=== PATIENT | female | born 1970 | race Caucasian/White ===

== ENCOUNTER 2018-05-22 15:00 | Outpatient (RCR) ==
--- NOTE | 2018-05-13 09:33 | RS.OPPTEV2 ---
Date of Note: 05/12/18 Visit #: 1 Number of visits approved by Insurance: n/a Date of Evaluation: 05/12/18 Payer Source: Insurance Surgery Performed?: No Treatment Diagnosis: strain of sternocleidomastoid muscle History of Condition/Mechanism of Injury:: pt reports she has been having difficulty swallowing for a few months and a couple of months ago she noticed her R neck was "swollen". Prior Level of Function.....Patient was independent with: ADL's, Self Care, Work /Vocation, Ambulation/Mobility, Community Integration/Access Functional Limitations: Sleep, Reaching, Pushing, Pulling, Lifting Current Subjective/complaints:: pt reports she has had to stop eating meat due to difficulty swallowing. States she got a CT scan which showed nodules on thyroid but not mass in neck. States ENT MD was not concerned about her thyroid. pt voices concerns due to continued difficulty swallowing and continued swelling noted in neck. 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 Pain Assessment - Pain Description Pain Location: R side of neck Pain Description: Tightness, Aching Current Pain Intensity: 5 Worst Pain Intensity: 5 Functional Outcome Measure Neck Disability Index: 10 - G Codes & Severity Modifier G Codes & Modifier: n/a Source of G Code score: n/a Observation - Observation Posture: Forward Head, Rounded Shoulders, Increased Thoracic Kyphosis, Decreased Cervical Lordosis Handedness: Right Gait - Gait Pattern General Gait Pattern Observation: No Deviations/Normal General Range of Motion: BUE WFL's. BLE WFL's Muscle Strength: BUE 5/5. BLE 5/5 - ROM Cervical Spine Range of Motion Limitations: Soft Tissue Tightness, Muscle Weakness Comments: Cervical ROM WFL's with pain with flex, side bending L and R. - Strength Cervical Extension: 4- Good- Cervical Flexion: 3 Fair Cervical Lateral Flexion: 3+ Fair+ Cervical Rotation: 4- Good- - Special Tests Foraminal Distraction: increased pain with distraction Foraminal Compression: Positive Right Palpation Palpation Findings: Tenderness, Trigger Point, Muscle Guarding Comments:: pt with tenderness, muscle guarding in R sternocleidomastoid and upper trap Sensation - Sensation Right Upper Extremity: Intact/Normal Left Upper Extremity: Intact/Normal Right Lower Extremity: Intact/Normal Left Lower Extremity: Intact/Normal Balance - Sitting Balance Static Sitting Balance: Normal Dynamic Sitting Balance: Normal - Standing Balance Static Standing Balance: Normal Dynamic Standing Balance: Normal - Heat/Cryotherapy Treatment: Hot Pack Comments:: cervical spine Interventions - Exercise/Activities/Manual Therapy Exercises/Activities: pt performed gentle stretching to upper trap, scapular retraction, cervical retraction Manual Therapy: Na HOME EXERCISE PROGRAM: pt given written HEP including cervical retraction, upper trap stretch, corner stretch, neck stretch - Charges Timed Code Treatment Minutes: 52 Total Treatment Time: 61 Procedures billed for this date of service:: jammie hector, EVALUATION COMPLEXITY LEVEL EVALUATION COMPLEXITY LEVEL: HISTORY: Low (CVA, OA), EXAM OF BODY SYSTEMS: Low ( pain, ROM, ), CLINICAL PRESENTATION: Medium, CLINICAL DECISION MAKING: Low Assessment Assessment: pt presents with muscle tightness in upper trap, SCM, with trigger points noted in upper trap. Patient Education: Home Exercise Program, Education of Plan of Care Rehab Potential: Good Short Term Goals Goal #1: pt independent with initial HEP Goal to be met by: 05/19/18 Goal #2: pt rate pain <5/10 Goal to be met by: 05/19/18 Goal #3: pt with decreased muscle tightness in upper trap and SCM Goal to be met by: 05/19/18 Computing Consultant Goals Goal #1: pt rate pain <2/10 Goal to be met by: 05/26/18 Goal #2: pt cervical ROM WFL's without pain with ROM Goal to be met by: 05/26/18 Goal #3: pt report ability to return to normal house hold activities Goal to be met by: 05/26/18 Plan - Treatment to be Provided Procedures: Therapeutic Exercises, Therapeutic Activity, Manual Therapy, Massage , Patient Education Modalities: Cryotherapy, Hot Packs - Treatment Plan Frequency: 2 X week Duration: 2 weeks Dates of Computing Consultant Goals: 05/26/18 Expiration date of current Insurance Approval:: n/a - Treatment Code (1) Cervical pain Code(s): M54.2 - CERVICALGIA (2) Strain of sternocleidomastoid muscle Code(s): S16.1XXA - STRAIN OF MUSCLE, FASCIA AND TENDON AT NECK LEVEL, INIT Qualifiers: Encounter type: subsequent encounter Qualified Code(s): S16.1XXD - Strain of muscle, fascia and tendon at neck level, subsequent encounter (3) Muscle tightness Code(s): M62.89 - OTHER SPECIFIED DISORDERS OF MUSCLE
--- NOTE | 2018-05-16 07:59 | RS.OPPTDN ---
Subjective Date of Note: 05/15/18 Visit #: 2 Number of visits approved by Insurance: NA Date of Evaluation: 05/12/18 Payer Source: Insurance Treatment Diagnosis: strain of sternocleidomastoid muscle Current Subjective/complaints:: Patient reports difficulty with swallowing and tightness on the R side of her neck. *Precautions: n/a Pain Assessment - Pain Description Pain Location: R SCM Pain Description: Tightness Current Pain Intensity: not rated - Heat/Cryotherapy Treatment: Hot Pack (20 mins. prior to ,ex and manual therapy.) Interventions - Exercise/Activities/Manual Therapy Exercises/Activities: 20 mins. gentle stretching to upper trap, scapular retraction, cervical retraction Total minutes of Exercise: 20 Manual Therapy: Gentl soft tissue mobs. ,focus on origin of the R SCM muscle Total minutes of Manual Therapy: 20 HOME EXERCISE PROGRAM: pt given written HEP including cervical retraction, upper trap stretch, corner stretch, neck stretch - Charges Timed Code Treatment Minutes: 40 Total Treatment Time: 60 Procedures billed for this date of service:: hp,MT,ex Assessment: Patient is tender to palpate the posterior aspect of the origin of the R SCM,also has palpable tenderness just below the R mastoid process.She has increased difficulty with cervical rotation to the L due to R sided swellng of the neck.She is attentive and motivated to improve. Patient Education: Education of diagnosis, Body/Joint mechanics, Home Exercise Program, Home Safety, Activity Modification, Education of Plan of Care Patient demonstrates compliance with HEP?: Yes Short Term Goals Goal #1: pt independent with initial HEP Goal to be met by: 05/19/18 Progress towards Goal:: Progressing Goal #2: pt rate pain <5/10 Goal to be met by: 05/19/18 Goal #3: pt with decreased muscle tightness in upper trap and SCM Goal to be met by: 05/19/18 Longterm Goals Goal #1: pt rate pain <2/10 Goal to be met by: 05/26/18 Goal #2: pt cervical ROM WFL's without pain with ROM Goal to be met by: 05/26/18 Goal #3: pt report ability to return to normal house hold activities Goal to be met by: 05/26/18 Plan Dates of Pediatric Oncology Nurse Goals: 05/26/18 Expiration date of current Insurance Approval:: 05/26/18 PLAN: Cont.PT to reduce cervical tightnes and pain in the R SCM.
--- NOTE | 2018-05-19 16:11 | RS.OPPTDN ---
Subjective Date of Note: 05/19/18 Visit #: 3 Number of visits approved by Insurance: 2x2 order expiring 05/26/18 Date of Evaluation: 05/12/18 Payer Source: Insurance Treatment Diagnosis: strain of sternocleidomastoid muscle Current Subjective/complaints:: Patient says her pain has been less, but is sore today since work was short-handed forcing her to do more than usual. She says she feels better after therapy. *Precautions: n/a Pain Assessment - Pain Description Pain Location: R sided neck - Heat/Cryotherapy Treatment: Hot Pack (cervical x 20 mins in sitting) Interventions - Exercise/Activities/Manual Therapy Exercises/Activities: 20 mins. Pt receives gentle stretches for lateral flexion and rotation to the L. Isometric neck retraction 2x5. Shoulder shrugs and scap adduction x 8. Continued with pt education of diagnosis, anatomy, and posture as well as alternating heat/ice for pain control at home. Manual Therapy: Gentle soft tissue mobs. ,focus on origin of the R SCM muscle and near clavicle per pt c/o area of tenderness and pain. Total minutes of Manual Therapy: 14 HOME EXERCISE PROGRAM: pt given written HEP including cervical retraction, upper trap stretch, corner stretch, neck stretch - Charges Timed Code Treatment Minutes: 34 Total Treatment Time: 54 Procedures billed for this date of service:: hp, MT, EX Assessment: Patient experiencing pain reduction with therapy at this point, but does have elevation today regarding increased work load at her job. Patient has limited ROM with cspine through stretching, but does demo improved mobility and tenderness following exercise. She continues to demo moderate muscle guarding to the SCM, but no trigger points felt. Patient Education: Education of diagnosis, Body/Joint mechanics, Home Exercise Program Patient demonstrates compliance with HEP?: Yes Short Term Goals Goal #1: pt independent with initial HEP Goal to be met by: 05/19/18 Progress towards Goal:: Progressing Goal #2: pt rate pain <5/10 Goal to be met by: 05/19/18 Progress towards Goal:: Progressing Comments:: 3-4/10 currently Goal #3: pt with decreased muscle tightness in upper trap and SCM Goal to be met by: 05/19/18 Log Skidder Goals Goal #1: pt rate pain <2/10 Goal to be met by: 05/26/18 Goal #2: pt cervical ROM WFL's without pain with ROM Goal to be met by: 05/26/18 Goal #3: pt report ability to return to normal house hold activities Goal to be met by: 05/26/18 Plan Dates of Group Home Goals: 05/26/18 Expiration date of current Insurance Approval:: 05/26/18 PLAN: Patient to continue x 1 more session per order. Fax next note to MD and reassess Neck Disability Index.
--- NOTE | 2018-05-22 16:36 | RS.OPPTDN ---
Subjective Date of Note: 05/22/18 Visit #: 4 Number of visits approved by Insurance: 4 Date of Evaluation: 05/12/18 Payer Source: Insurance Treatment Diagnosis: strain of sternocleidomastoid muscle Current Subjective/complaints:: Patient says she is having slight relief with treatment, but remains concerned about difficulty swallowing and she has not had a referral from her MD to the neuro office. *Precautions: n/a - Heat/Cryotherapy Treatment: Hot Pack (cervical x 20 mins sitting) Interventions - Exercise/Activities/Manual Therapy Exercises/Activities: Pt receives gentle stretches for lateral flexion and rotation to the L. Isometric neck retraction 2x5. Shoulder shrugs and scap adduction x 8. 6 mins Manual Therapy: Gentle soft tissue mobs. ,focus on origin of the R SCM muscle and near clavicle per pt c/o area of tenderness and pain. 23 mins HOME EXERCISE PROGRAM: pt given written HEP including cervical retraction, upper trap stretch, corner stretch, neck stretch - Charges Timed Code Treatment Minutes: 49 Total Treatment Time: 29 Procedures billed for this date of service:: hp, MT2 Assessment: Patient experiencing slight reduction in pain following treatment. She remains tender at the R clavicular region and at SCM origin. She is suposed to have a referral to neurologist and is awaiting script at this time. She was instructed in postural mechanics and techniques to avoid further tightness of the R side. Patient Education: Education of diagnosis, Body/Joint mechanics, Home Exercise Program, Activity Modification, Education of Plan of Care Patient demonstrates compliance with HEP?: Yes Short Term Goals Goal #1: pt independent with initial HEP Goal to be met by: 05/19/18 Progress towards Goal:: Progressing Goal #2: pt rate pain <5/10 Goal to be met by: 05/19/18 Progress towards Goal:: Progressing Goal #3: pt with decreased muscle tightness in upper trap and SCM Goal to be met by: 05/19/18 Progress towards Goal:: Progressing Half-Way Goals Goal #1: pt rate pain <2/10 Goal to be met by: 05/26/18 Goal #2: pt cervical ROM WFL's without pain with ROM Goal to be met by: 05/26/18 Goal #3: pt report ability to return to normal house hold activities Goal to be met by: 05/26/18 Plan Dates of Glue Size Machine Operator Goals: 05/26/18 Expiration date of current Insurance Approval:: 05/26/18 PLAN: Patient has completed POC through MD order period (2x2) visits. She is to continue with HEP and be aware of proper postural techniques to possibly assist her at home and work and avoid elevation of pain.
== END 2018-05-28 23:59 ==
DX: S16.1XXD Strain of muscle, fascia and tendon at neck level, subsequent encounter (principal); M54.2 Cervicalgia; M62.89 Other specified disorders of muscle

== ENCOUNTER 2018-10-24 13:00 | Outpatient (RCR) ==
--- NOTE | 2018-10-03 09:05 | RS.OPPTEV2 ---
Date of Note: 10/02/18 Visit #: 1 Number of visits approved by Insurance: n/a Date of Evaluation: 10/02/18 Payer Source: Insurance Date of Onset/Injury/Change in Status: 09/04/18 Surgery Performed?: Yes (R knee arthroscopy 09/04/18) Treatment Diagnosis: s/p R knee arthroscopy due to meniscal tear, R knee pain History of Condition/Mechanism of Injury:: pt reports she felt a "pop" in 2017 and suffered a meniscal tear of R knee. Underwent R knee arthroscopy on 09/04. Prior Level of Function.....Patient was independent with: ADL's, Self Care, Work /Vocation, Ambulation/Mobility, Community Integration/Access Functional Limitations: Standing, Bending, Squatting, Ambulation, Community Access/Integration Current Subjective/complaints:: pt reports she has been using ice to decrease edema and pain since surgery and is ready to begin her PT to improve her ROM. pt states that MD says her knee is bone on bone and she may need TKR in future. Treatment Side (optional): Right *Precautions: n/a Medical History Medical History: CVA/TIA (15 years ago), Arthritis Smoking Status: Former smoker Hx Home Medications: meloxicam Patient's Goals: be able to stand and walk comfortably Pain Assessment - Pain Description Pain Location: R knee Pain Description: Sharp, Aching Current Pain Intensity: 5 Functional Outcome Measure LE Functional Scale: 27 - G Codes & Severity Modifier G Codes & Modifier: n/a Source of G Code score: n/a Observation - Observation Posture: Forward Head, Rounded Shoulders Handedness: Right Girth Measurement Lower: R knee 43.8cm. 10 cm below knee 40.6cm. L knee 43 cm. 10 cm below knee 40.3cm Gait - Gait Pattern General Gait Pattern Observation: Antalgic Gait Gait Comments: pt amb with antalgic gait without AD with decreased heel strike/ toe off gait pattern, decreased stance time on RLE. General Range of Motion: BUE WFL's. LLE WFL's. R hip/ankle WFL's Muscle Strength: BUE 5/5. LLE 5/5. R hip flex 4/5, ankle DF/PF 4/5 Knee ROM: Left WFL's Knee Muscle Strength: Left WFL's - Right Knee ROM Right Knee Extension: -10 Right Knee Flexion: 88 Knee ROM Limitations: Soft Tissue Tightness, Muscle Weakness, Pain - Right Knee Strength Right Knee Extension: 3- Fair- Right Knee Flexion: 3- Fair- Comments: incisions to ant knee are healed, no open areas. Palpation Palpation Findings: Tenderness Comments:: tenderness to palpation R knee, Sensation - Sensation Right Upper Extremity: Intact/Normal Left Upper Extremity: Intact/Normal Right Lower Extremity: Intact/Normal Left Lower Extremity: Intact/Normal Balance - Sitting Balance Static Sitting Balance: Normal Dynamic Sitting Balance: Normal - Standing Balance Static Standing Balance: Good Dynamic Standing Balance: Good - Heat/Cryotherapy Treatment: Cryotherapy Comments:: R knee Interventions - Exercise/Activities/Manual Therapy Exercises/Activities: pt performed QS, HS, SAQ, SLR, LAQ x 5 reps Manual Therapy: n/a HOME EXERCISE PROGRAM: pt given written HEP including QS, HS, SAQ, SLR, LAQ, - Charges Timed Code Treatment Minutes: 48 Total Treatment Time: 59 Procedures billed for this date of service:: eval low, ex, cold pack EVALUATION COMPLEXITY LEVEL EVALUATION COMPLEXITY LEVEL: HISTORY: Low, EXAM OF BODY SYSTEMS: Medium, CLINICAL PRESENTATION: Low, CLINICAL DECISION MAKING: Low Assessment Assessment: pt presents with R knee pain, edema, decreased ROM and strength R knee. Feel pt would benefit from skilled PT for therex for R knee strengthening , ROM as well as modalities to decrease pain and edema. Patient Education: Home Exercise Program, Education of Plan of Care Rehab Potential: Good Short Term Goals Goal #1: pt independent with initial HEP Goal to be met by: 10/17/18 Goal #2: pt rate pain <5/10 Goal to be met by: 10/17/18 Goal #3: Improve R knee ROM flex 95, ext -5 Goal to be met by: 10/17/18 Goal #4: Decrease edema R knee Goal to be met by: 10/17/18 Zipper Sewing Machine Operator Goals Goal #1: pt report ability to return to normal daily activities w less pain Goal to be met by: 10/31/18 Goal #2: R knee ROM flex 110 ext 0 Goal to be met by: 10/31/18 Goal #3: pt amb with improved heel strike/toe off sequencing Goal to be met by: 10/31/18 Plan - Treatment to be Provided Procedures: Therapeutic Exercises, Therapeutic Activity, Patient Education Modalities: Electrical Stimulation, Ultrasound/Phonophoresis, Cryotherapy, Hot Packs - Treatment Plan Frequency: 2-3x a week Duration: 4 weeks Dates of Zipper Sewing Machine Operator Goals: 10/31/18 Expiration date of current Insurance Approval:: n/a - Treatment Code (1) Right knee pain Code(s): M25.561 - PAIN IN RIGHT KNEE Qualifiers: Chronicity: chronic Qualified Code(s): M25.561 - Pain in right knee; G89.29 - Other chronic pain (2) Joint stiffness of knee Qualifiers: Laterality: right Qualified Code(s): M25.661 - Stiffness of right knee, not elsewhere classified (3) Joint effusion of knee Qualifiers: Laterality: right Qualified Code(s): M25.461 - Effusion, right knee (4) S/P right knee arthroscopy Code(s): Z98.890 - OTHER SPECIFIED POSTPROCEDURAL STATES (5) Muscle weakness Code(s): M62.81 - MUSCLE WEAKNESS (GENERALIZED)
--- NOTE | 2018-10-07 14:18 | RS.OPPTDN ---
Subjective Date of Note: 10/07/18 Visit #: 3 Number of visits approved by Insurance: 2-3x4 Date of Evaluation: 10/02/18 Payer Source: Insurance Treatment Diagnosis: s/p R knee arthroscopy due to meniscal tear, R knee pain Current Subjective/complaints:: Patient says she was sore after her last session as well as following walking around at a horse auction. She says prolonged walking is the hardest for her to dafne as well as walking down basement steps in her home. She expresses she has been walking down leading with her surgical leg out of comfort level. She continues to use ice and Aleve throughout the day. *Precautions: n/a Interventions - Exercise/Activities/Manual Therapy Exercises/Activities: Patient receives passive stretching to R heel cords, ROM and gentle HS stretching to the R LE. She performs QS, heel slides, SAQ, Bilateral SAQ holding ball between ankles, isometric ankle IV using ball between ankles, DF with red tband, ham curls with red tband, hip abd/add, SLR ( AAROM 2x5), all 2x10. Hooklying ball squeezes and red tband for hip abd 2x10. Sitting EOB: LAQ x 15. Reviewed HEP and avoiding twisting at the knee. Encouraged continued use of ice and repeated proper sequencing for stair climbing. Total minutes of Exercise: 33 Manual Therapy: n/a HOME EXERCISE PROGRAM: pt given written HEP including QS, HS, SAQ, SLR, LAQ, - Charges Timed Code Treatment Minutes: 33 Total Treatment Time: 35 Procedures billed for this date of service:: ex2 Assessment: Patient felt increased pain to the R knee following previous session beginning exercises and prolonged walking at a horse auction. She iced and used Aleve to decrease her pain once she got home. She demo improved ease of performing SLR today not needing assistance and with better control, no trembling. She also is able to danfe hamstring stretching better and demo increased extension. Patient chose to use ice at home later this afternoon. Patient Education: Education of diagnosis, Body/Joint mechanics, Home Exercise Program, Education of Plan of Care Patient demonstrates compliance with HEP?: Yes Short Term Goals Goal #1: pt independent with initial HEP Goal to be met by: 10/17/18 Progress towards Goal:: Progressing Goal #2: pt rate pain <5/10 Goal to be met by: 10/17/18 Goal #3: Improve R knee ROM flex 95, ext -5 Goal to be met by: 10/17/18 Progress towards Goal:: Progressing Goal #4: Decrease edema R knee Goal to be met by: 10/17/18 Managed Services Consultant Goals Goal #1: pt report ability to return to normal daily activities w less pain Goal to be met by: 10/31/18 Goal #2: R knee ROM flex 110 ext 0 Goal to be met by: 10/31/18 Goal #3: pt amb with improved heel strike/toe off sequencing Goal to be met by: 10/31/18 Plan Dates of Managed Services Consultant Goals: 10/31/18 Expiration date of current Insurance Approval:: 10/31/18 PLAN: Patient to attend BIW for strengthening to the R knee and improve mobility.
--- NOTE | 2018-10-07 14:23 | RS.OPPTDN ---
Subjective Date of Note: 10/03/18 Visit #: 2 Number of visits approved by Insurance: 2-3x4 Date of Evaluation: 10/02/18 Payer Source: Insurance Treatment Diagnosis: s/p R knee arthroscopy due to meniscal tear, R knee pain Current Subjective/complaints:: Patient says she has had some stiffness and swelling to the R knee. She says she has been using ice at home and working on HEP. She says bending her knee is the hardest to do. Also, c/o R hip pain. *Precautions: n/a - Heat/Cryotherapy Treatment: Cryotherapy (15 mins to the R knee after therex) Interventions - Exercise/Activities/Manual Therapy Exercises/Activities: Patient receives passive stretching to R heel cords, ROM and gentle HS stretching to the R LE. She performs QS, heel slides, SAQ, DF with red tband, ham curls with red tband, hip abd/add, SLR (AAROM 2x5), all 2x10. Sitting EOB: LAQ and ball squeezes for isometric hip add x 10. Began pt education of diagnosis, anatomy, exercises performed today, encouraged use of ice at home and continue HEP. Total minutes of Exercise: 26 Manual Therapy: n/a HOME EXERCISE PROGRAM: pt given written HEP including QS, HS, SAQ, SLR, LAQ, - Charges Timed Code Treatment Minutes: 26 Total Treatment Time: 41 Procedures billed for this date of service:: cp, ex2 Assessment: Patient demo trembling with hamstring stretching and SLR requiring intermittent assistance. She is experiencing relief with cryotherapy and Aleve. She should improve with further ROM activities and strengthening generally to the R LE. Patient Education: Education of diagnosis, Home Exercise Program, Education of Plan of Care Patient demonstrates compliance with HEP?: Yes Short Term Goals Goal #1: pt independent with initial HEP Goal to be met by: 10/17/18 Progress towards Goal:: Progressing Goal #2: pt rate pain <5/10 Goal to be met by: 10/17/18 Goal #3: Improve R knee ROM flex 95, ext -5 Goal to be met by: 10/17/18 Goal #4: Decrease edema R knee Goal to be met by: 10/17/18 Assisted Goals Goal #1: pt report ability to return to normal daily activities w less pain Goal to be met by: 10/31/18 Goal #2: R knee ROM flex 110 ext 0 Goal to be met by: 10/31/18 Goal #3: pt amb with improved heel strike/toe off sequencing Goal to be met by: 10/31/18 Plan Dates of Mechanist Goals: 10/31/18 Expiration date of current Insurance Approval:: 10/31/18 PLAN: Continue BIW for general strengthening and ROM to the R knee
--- NOTE | 2018-10-10 14:25 | RS.OPPTDN ---
Subjective Date of Note: 10/10/18 Visit #: 4 Number of visits approved by Insurance: [id number] Date of Evaluation: 10/02/18 Payer Source: Insurance Treatment Diagnosis: s/p R knee arthroscopy due to meniscal tear, R knee pain Current Subjective/complaints:: Patient says her knee is tired, tight, and more sore this afternoon. She says she has been in [place] running errands and can tell her knee is swollen. She says she is going to the local gym and using the treadmill walking ~10 mins. Chela continues to ice her knee at home and work on HEP. She asks when she can return to work. *Precautions: n/a Pain Assessment - Pain Description Pain Description: Tightness Pain Description: swollen, sore, tight - Heat/Cryotherapy Treatment: Cryotherapy (15 mins to the R knee after therex supine) Interventions - Exercise/Activities/Manual Therapy Exercises/Activities: Patient receives passive stretching to R heel cords, ROM and gentle HS stretching to the R LE. Rests given for HS stretching due to causing hip discomfort/fatigue. She performs QS, heel slides, SAQ,ball squeezes , DF increased to green tband, ham curls increased to green tband, hip abd/add, SLR(2x8), all 2x10. Sitting EOB: LAQ x 10. Continued with pt education of diagnosis, anatomy, exercises performed today, green tband for hooklying hip abd for home. Encouraged use of ice at home and continue HEP. Discussed speaking to MD about returning to work. Encouraged her to continue working on treadmill to assist her with amb throughout the day at work. Total minutes of Exercise: 33 Manual Therapy: n/a HOME EXERCISE PROGRAM: pt given written HEP including QS, HS, SAQ, SLR, LAQ, - Objective Findings Observations,measurements,etc.: -2 (with QS) -4 to 105 degrees supine after therex - Charges Timed Code Treatment Minutes: 33 Total Treatment Time: 48 Procedures billed for this date of service:: cp, ex2 Assessment: Patient presents with increased tightness, swelling, soreness to the R knee following errand running. Chela has some difficulty with dafne HS stretching due to R hip discomfort, but is able to perform all other therex. She is compliant and consistent with HEP and icing at home for relief and swelling. She is a little concerned about returning to work and making sure she is ready. Discussed different scenarios to which she could have some soreness or difficulty and encouraged her to ice on her breaks and continue to work on HEP and use good body mechanics. She voiced improvement with cryotherapy and does demo increased ROM today. Patient Education: Education of diagnosis, Home Exercise Program, Education of Plan of Care Patient demonstrates compliance with HEP?: Yes Short Term Goals Goal #1: pt independent with initial HEP Goal to be met by: 10/17/18 Progress towards Goal:: Progressing Goal #2: pt rate pain <5/10 Goal to be met by: 10/17/18 Goal #3: Improve R knee ROM flex 95, ext -5 Goal to be met by: 10/17/18 Progress towards Goal:: Partially Met (Patient has met flexion portion of this goal) Goal #4: Decrease edema R knee Goal to be met by: 10/17/18 Jail Goals Goal #1: pt report ability to return to normal daily activities w less pain Goal to be met by: 10/31/18 Goal #2: R knee ROM flex 110 ext 0 Goal to be met by: 10/31/18 Goal #3: pt amb with improved heel strike/toe off sequencing Goal to be met by: 10/31/18 Plan Dates of Jail Goals: 10/31/18 Expiration date of current Insurance Approval:: 10/31/18 PLAN: Patient to continue to work on general strengthening and mobility to the R knee
--- NOTE | 2018-10-15 13:24 | RS.CXNS ---
Date of scheduled appointment: 10/15/18 Type: No Show
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
--- NOTE | 2018-10-21 16:35 | RS.OPPTDN ---
Subjective Date of Note: 10/21/18 Visit #: 6 Number of visits approved by Insurance: [id number] Date of Evaluation: 10/02/18 Payer Source: Insurance Treatment Diagnosis: s/p R knee arthroscopy due to meniscal tear, R knee pain Current Subjective/complaints:: Patient says she walked around a farm auction over the weekend, but did take a camping chair so that she may sit if she needed to. She reports pain has been low. Reports she continues to use ice prn. States she is able to see she has more mobility and would like to return to riding her bike with her sister. *Precautions: n/a Interventions - Exercise/Activities/Manual Therapy Exercises/Activities: Patient receives passive stretching to R heel cords, ROM and gentle HS stretching to the R LE. Also, ROM for knee flexion. She performs QS, heel slides, SAQ 2#,ball squeezes, DF increased to green tband, ham curls increased to green tband, hip abd with 2# with knee extended, SLR, hooklying hip abd with green tband, all 2x10. Returned to more HS stretching. Sitting EOB: LAQ 2# x 15. Green tband for ham curls x 15. Began stationary bike for/retro x 3 mins. Continued with pt education of diagnosis, anatomy, exercises performed today, green tband for hooklying hip abd for home. Encouraged use of ice at home and continue HEP. Total minutes of Exercise: 38 Manual Therapy: n/a HOME EXERCISE PROGRAM: pt given written HEP including QS, HS, SAQ, SLR, LAQ, - Charges Timed Code Treatment Minutes: 38 Total Treatment Time: 38 Procedures billed for this date of service:: ex3 Assessment: Patient kaitlynn improved hamstring flexibility today, thus providing increased knee extension. She no longer has R hip soreness with hamstring stretching. R LE kaitlynn increased strength as well allowing her to progress with tbands/weights. Began stationary bike preparing her to return to hopefully bike riding with sister. Some soreness felt with increasing knee flexion (R). Patient Education: Home Exercise Program, Education of Plan of Care Patient demonstrates compliance with HEP?: Yes Short Term Goals Goal #1: pt independent with initial HEP Goal to be met by: 10/17/18 Progress towards Goal:: Progressing Goal #2: pt rate pain <5/10 Goal to be met by: 10/17/18 Progress towards Goal:: Progressing Goal #3: Improve R knee ROM flex 95, ext -5 Goal to be met by: 10/17/18 Progress towards Goal:: Partially Met (Patient has met flexion portion of this goal) Goal #4: Decrease edema R knee Goal to be met by: 10/17/18 Progress towards Goal:: Progressing Nursing Home Goals Goal #1: pt report ability to return to normal daily activities w less pain Goal to be met by: 10/31/18 Goal #2: R knee ROM flex 110 ext 0 Goal to be met by: 10/31/18 Goal #3: pt amb with improved heel strike/toe off sequencing Goal to be met by: 10/31/18 Plan Dates of Nursing Home Goals: 10/31/18 Expiration date of current Insurance Approval:: 10/31/18 PLAN: Patient to continue BIW to strengthen the R LE to prepare to return to work.
--- NOTE | 2018-10-24 16:36 | RS.OPPTDN ---
Subjective Date of Note: 10/24/18 Visit #: 7 Number of visits approved by Insurance: na Date of Evaluation: 10/02/18 Payer Source: Insurance Treatment Diagnosis: s/p R knee arthroscopy due to meniscal tear, R knee pain Current Subjective/complaints:: Patient reports right LE is stronger and she has little to no pain. States she will see her physician on Saturday and feels she will be released. States she will continue HEP as instructed. *Precautions: n/a Pain Assessment - Pain Description Pain Location: right knee Pain Description: Tightness Current Pain Intensity: 0 Interventions - Exercise/Activities/Manual Therapy Exercises/Activities: Patient receives passive stretching to R heel cords, ROM and gentle HS and SKTC stretching to the R LE. QS, heel slides, SAQ 2#, ball squeezes, DF with green tband, ham curls green tband, and hip abd with knee extended, SLR 2#, hooklying hip abd with green tband, all 2x10. Added SLR/VMO. Returned to more HS stretching. Sitting EOB: LAQ 2#, 2s/10reps. Green tband for ham curls 2s/10reps. Stationary bike for/retro x 5 mins. Standing red theraband resisted hip x4 directions, 10reps. Patient given red theraband and copy of new exercises. Total minutes of Exercise: 39mins/44mins Manual Therapy: n/a HOME EXERCISE PROGRAM: pt given written HEP including QS, HS, SAQ, SLR, LAQ, - Charges Timed Code Treatment Minutes: 39mins Total Treatment Time: 44mins Procedures billed for this date of service:: EX3 Assessment: Patient progressing well with goals. May continue current POC, but is anticipating being released by physician. Patient Education: Body/Joint mechanics, Home Exercise Program, Home Safety, Activity Modification Patient demonstrates compliance with HEP?: Yes Short Term Goals Goal #1: pt independent with initial HEP Goal to be met by: 10/17/18 Progress towards Goal:: Met Goal #2: pt rate pain <5/10 Goal to be met by: 10/17/18 Progress towards Goal:: Met Goal #3: Improve R knee ROM flex 95, ext -5 Goal to be met by: 10/17/18 Progress towards Goal:: Met (Flexion 98 degrees and extension to approx -3 degrees.) Goal #4: Decrease edema R knee Goal to be met by: 10/17/18 Progress towards Goal:: Progressing [employer] Goals Goal #1: pt report ability to return to normal daily activities w less pain Goal to be met by: 10/31/18 Progress towards goal: Met Goal #2: R knee ROM flex 110 ext 0 Goal to be met by: 10/31/18 Progress towards goal: Progressing Goal #3: pt amb with improved heel strike/toe off sequencing Goal to be met by: 10/31/18 Progress towards goal: Progressing Plan Dates of [facility] Goals: 10/31/18 Expiration date of current Insurance Approval:: 10/31/18 PLAN: Hold for patient follow-up appointment with physician.
== END 2018-10-26 23:59 ==
PROVIDERS: ATTEND Orthopaedic Surgery
DX: M25.561 Pain in right knee (principal); G89.29 Other chronic pain; M25.661 Stiffness of right knee, not elsewhere classified; M25.461 Effusion, right knee; M62.81 Muscle weakness (generalized)